=== PATIENT | female | born 1985 ===

== ENCOUNTER 2017-09-24 15:51 | Emergency (ER) | payer MEDICAID ==
[2017-09-24 16:19] VITALS: RESP 18; O2SAT 99
--- NOTE | 2017-09-24 16:38 | ED PDOC ---
HPI: Female Pain Time Seen by Provider: 09/24/17 16:35 Chief Complaint (Nursing): Female Genitourinary Chief Complaint (Provider): with pain and bleeding History Per: Patient, Family (patient's at bedside is translating in Belgian for patient) Additional Complaint(s): 32-year-old female presents with vaginal bleeding and abdominal pain. Patient states she is currently and her last period was August 14. She was seen yesterday by financial accounting analyst and test was positive. Patient is currently taking vitamins. Today bleeding became heavier prompting ED visit. Or vomiting, no fever or chills, no dysuria. PMD: Dr. Flores Past Medical History Reviewed: Historical Data, Nursing Documentation, Vital Signs Vital Signs: Last Vital Signs Temp 98.6 F 09/24/17 16:16 Pulse 83 09/24/17 16:16 Resp 18 09/24/17 16:16 BP 138/91 H 09/24/17 16:16 Pulse Ox 99 09/24/17 16:16 - Medical History PMH: No Chronic Diseases Other PMH: (1 previous miscarriage) - Surgical History Surgical History: (x 1) Other surgeries: craniotomy due to trauma, left humerus fracture repair - Family History Family History: States: No Known Family Hx - Living Arrangements Living Arrangements: With Family - Social History Current smoker - smoking cessation education provided: No Alcohol: None Drugs: Denies - Allergies Allergies/Adverse Reactions: Allergies Allergy/AdvReac Type Severity Reaction Status Date / Time No Known Allergies Allergy Verified 09/24/17 16:16 Review of Systems ROS Statement: Except As Marked, All Systems Reviewed And Found Negative Constitutional: Negative for: Fever Cardiovascular: Negative for: Chest Pain Respiratory: Negative for: Cough Gastrointestinal: Positive for: Abdominal Pain. Negative for: Nausea, Vomiting Genitourinary Female: Positive for: Vaginal Bleeding. Negative for: Dysuria Physical Exam - Reviewed Nursing Documentation Reviewed: Yes Vital Signs Reviewed: Yes - Physical Exam Appears: Positive for: Well, Non-toxic, No Acute Distress Skin: Positive for: Normal Color. Negative for: Rash Eye Exam: Positive for: Normal appearance Cardiovascular/Chest: Positive for: Regular Rate, Rhythm Respiratory: Positive for: Normal Breath Sounds. Negative for: Wheezing, Respiratory Distress Gastrointestinal/Abdominal: Positive for: Soft. Negative for: Tenderness, Distended, Guarding, Rebound Extremity: Positive for: Normal ROM. Negative for: Pedal Edema Neurologic/Psych: Positive for: Alert, Oriented - Laboratory Results Result Diagrams: 09/24/17 17:15 09/24/17 17:15 Urine POC: Positive Urine dip results: Positive for: Blood (moderate). Negative for: Leukocyte Esterase, Nitrate, Ketones, Glucose, Bilirubin, Protein - ECG O2 Sat by Pulse Oximetry: 99 Pulse Ox Interpretation: Normal - Other Rad OB TV US X-Ray: Read By Radiologist X-Ray Interpretation: see below Medical Decision Making Medical Decision Makin32 year old female with abd pain and bleeding Plan: Urine dip Urine CBC CMP Beta quant OB TV US IBF PO tylenol Type and screen US: FINDINGS: UTERUS: Measures 5 x 6.1 x 8.4 cm. Normal in size and appearance. No fibroid or other mass lesion seen. ENDOMETRIUM: Measures 10.6 mm in diameter. No ultrasound findings to suggest gestational sac, fluid, debris, mass or polyp or other pathologic process within the endometrium. CERVIX: No cervical abnormality identified. RIGHT OVARY: Measures 1.6 x 2.4 x 2.5 cm. No solid mass. Normal flow. Multiple subcentimeter follicles. LEFT OVARY: Measures 1.4 x 1.7 x 2.8 cm. No solid mass. Normal flow. FREE FLUID: No significant free fluid noted. OTHER FINDINGS: None. IMPRESSION: No visible intrauterine gestations/products of conception. Mild endometrial thickening. No significant adnexal findings. Beta is 419. Early vs complete . Case was d/w OB product marketing consultant, Dr. Weber. He states to have patient return in 2 days for repeat beta. Disposition - Clinical Impression Clinical Impression: Threatened - Patient ED Disposition Is Patient to be Admitted: No Counseled Patient/Family Regarding: Studies Performed, Diagnosis, Need For Followup - Disposition [facility] Disposition: Routine/Home Disposition Time: 18:20 Condition: STABLE Additional Instructions: Tylenol for pain as needed. Return to emergency room in 2 days for repeat blood work. Instructions: Threatened Miscarriage, Bleeding With Forms: [facility] (Belgian) Print Language: TOGOLESE Results - Lab Results Lab Results: 09/24/17 09/24/17 17:15 17:15 WBC 11.1 H RBC 4.34 Hgb 12.1 Hct 36.5 MCV 84.0 MCH 28.0 MCHC 33.3 RDW 13.2 Plt Count 222 MPV 8.7 Neut % (Auto) 68.4 Lymph % (Auto) 17.3 L Green % (Auto) 12.3 H Eos % (Auto) 1.6 Baso % (Auto) 0.4 Neut # (Auto) 7.6 H Lymph # (Auto) 1.9 Green # (Auto) 1.4 H Eos # (Auto) 0.2 Baso # (Auto) 0.0 Sodium 138 Potassium 3.7 Chloride 101 Carbon Dioxide 26 Anion Gap 15 BUN 14 Creatinine 0.8 Est GFR ( Amer) > 60 Est GFR (Non-Af Amer) > 60 Random Glucose 91 Calcium 8.8 Total Bilirubin 0.6 AST 16 ALT 21 Alkaline Phosphatase 53 Total Protein 6.9 Albumin 4.0 Globulin 2.9 Albumin/Globulin Ratio 1.4 Beta HCG, Quant 419.14
[2017-09-24] MEDS ORDERED: Sodium Chloride 0.9% 1,000 ML IV STA (16:39)
[2017-09-24 17:24] LABS: BASO % 0.4 % (0.0-2.0); EOS # 0.2 K/uL (0.0-0.7); EOS % 1.6 % (0.0-4.0); HEMOGLOBIN 12.1 g/dL (12.0-16.0); LYMPH # 1.9 K/uL (1.0-4.3); LYMPH % 17.3 % (20.0-40.0); MEAN CORPUSCULAR HGB CONC 33.3 g/dL (33.0-37.0); MEAN PLATELET VOLUME 8.7 fl (7.2-11.7); MONO # 1.4 K/uL (0.0-0.8); MONO % 12.3 % (0.0-10.0); NEUT # 7.6 K/uL (1.8-7.0); NEUT % 68.4 % (50.0-75.0); RBC 4.34 Mil/uL (3.80-5.20); RED CELL DISTRIBUTION WIDTH 13.2 % (11.5-14.5); WHITE BLOOD COUNT 11.1 K/uL (4.8-10.8)
[2017-09-24 17:37] LABS: ALB/GLOB RATIO 1.4 (1.0-2.1); ALT/SGPT 21 U/L (9-52); AST/SGOT 16 U/L (14-36); BLOOD UREA NITROGEN 14 mg/dl (7-17); CALCIUM 8.8 mg/dL (8.4-10.2); GFR AFRICAN-AMERICAN > 60; GFR NON-AFRICAN AMERICAN > 60
--- NOTE | 2017-09-24 18:11 | US ---
HISTORY: Early with pain and bleeding. LMP 08/14/2017. Beta HCG results: Unknown COMPARISON: None available. TECHNIQUE: Transvaginal only. Real -time technique with 2D, duplex and color Doppler FINDINGS: UTERUS: Measures 5 x 6.1 x 8.4 cm. Normal in size and appearance. No fibroid or other mass lesion seen. ENDOMETRIUM: Measures 10.6 mm in diameter. No ultrasound findings to suggest gestational sac, fluid, debris, mass or polyp or other pathologic process within the endometrium. CERVIX: No cervical abnormality identified. RIGHT OVARY: Measures 1.6 x 2.4 x 2.5 cm. No solid mass. Normal flow. Multiple subcentimeter follicles. LEFT OVARY: Measures 1.4 x 1.7 x 2.8 cm. No solid mass. Normal flow. FREE FLUID: No significant free fluid noted. OTHER FINDINGS: None. IMPRESSION: No visible intrauterine gestations/products of conception. Mild endometrial thickening. No significant adnexal findings.
[2017-09-24 18:54] VITALS: BP 130/78; PULSE 72; TEMP 98.1
== END 2017-09-24 18:54 | disposition home or self-care (01) ==
LOC: H.ER 15:51
DX: O20.0 Threatened abortion (principal)
CPT/HCPCS: 76817; 80053; 81025; 84702; 85025; 86850; 86900; 96360; 99283; J7030

== ENCOUNTER 2017-09-26 14:30 | Emergency (ER) | payer MEDICAID ==
[2017-09-26 14:37] VITALS: O2SAT 99; BMI 19.9
[2017-09-26 14:58] VITALS: TEMP 98.2
[2017-09-26 15:45] LABS: BASO % 0.7 % (0.0-2.0); EOS # 0.3 K/uL (0.0-0.7); EOS % 4.6 % (0.0-4.0); HEMOGLOBIN 12.3 g/dL (12.0-16.0); LYMPH % 33.4 % (20.0-40.0); MEAN CELL VOLUME 83.8 fl (81.0-99.0); MEAN CORPUSCULAR HEMOGLOBIN 28.1 pg (27.0-31.0); MEAN CORPUSCULAR HGB CONC 33.5 g/dL (33.0-37.0); MEAN PLATELET VOLUME 8.9 fl (7.2-11.7); MONO # 0.8 K/uL (0.0-0.8); MONO % 13.2 % (0.0-10.0); NEUT # 2.9 K/uL (1.8-7.0); NEUT % 48.1 % (50.0-75.0); NRBC % 0.1 % (0.0-0.0); RBC 4.39 Mil/uL (3.80-5.20); RED CELL DISTRIBUTION WIDTH 13.4 % (11.5-14.5)
--- NOTE | 2017-09-26 16:24 | ED PDOC ---
HPI: Female Pain Time Seen by Provider: 09/26/17 14:54 Chief Complaint (Nursing): Female Genitourinary Chief Complaint (Provider): Female Genitourinary History Per: Patient History/Exam Limitations: no limitations Onset/Duration Of Symptoms: Days Current Symptoms Are (Timing): Still Present Additional Complaint(s): 32 year old female presents to the ED for a repeat Beta-HCG. Patient was seen here recently and reports she is still noticing vaginal bleeding with clots. Additionally, patient complains of suprapubic abdominal pain described as cramping. Otherwise: (-) vomiting, (-) nausea, (-) fever, (-) urinary symptoms. PMD: Dr.Luis Michelle Flores Past Medical History Reviewed: Historical Data, Nursing Documentation, Vital Signs Vital Signs: Last Vital Signs Temp 98.2 F 09/26/17 14:55 Pulse 81 09/26/17 14:55 Resp 15 09/26/17 14:55 BP 121/70 09/26/17 14:55 Pulse Ox 99 09/26/17 14:55 - Medical History PMH: Migraine - Surgical History Surgical History: (x 1) - Family History Family History: States: Unknown Family Hx - Social History Current smoker - smoking cessation education provided: No - Allergies Allergies/Adverse Reactions: Allergies Allergy/AdvReac Type Severity Reaction Status Date / Time No Known Allergies Allergy Verified 09/24/17 16:16 Review of Systems ROS Statement: Except As Marked, All Systems Reviewed And Found Negative Constitutional: Positive for: Other (repeat beta-HCG) Genitourinary Female: Positive for: Vaginal Bleeding (with clots) Physical Exam - Reviewed Nursing Documentation Reviewed: Yes Vital Signs Reviewed: Yes - Physical Exam Comments: GENERAL APPEARANCE: Patient is awake, alert, oriented x 3, in no distress. SKIN: Warm, dry; (-) cyanosis. EYES: (-) conjunctival pallor, (-) scleral icterus. ENMT: Mucous membranes moist. NECK: (-) tenderness, (-) stiffness, (-) lymphadenopathy. CHEST AND RESPIRATORY: (-) rales, (-) rhonchi, (-) wheezes; breath sounds equal bilaterally. HEART AND CARDIOVASCULAR: (-) irregularity; (-) murmur, (-) gallop. ABDOMEN AND GI: (-) distention. Bowel sounds active; (-) abdominal tenderness , (-) guarding, (-) rebound, (-) palpable masses, (-) CVA tenderness. EXTREMITIES: (-) deformity, (-) edema, (+) distal pulses. NEURO AND PSYCH: Mental status as above; (-) focal findings. - Laboratory Results Result Diagrams: 09/26/17 15:36 - ECG O2 Sat by Pulse Oximetry: 99 (RA) Medical Decision Making Medical Decision Making: Time: 153 Plan: -- Beta-HCG, Quantitative -- CBC with differentials -- Tylenol 975 mg PO -- US Pelvis/Transvaginal -- Previous medical records for 07/25/2017 reviewed and revealed Beta-HCG levels were 416 and ultrasound showed no IUP. Labs reviewed : hgb 12, beta quant 369 US TV: FINDINGS: UTERUS: Measures 9.7 x 5.2 x 5.9cm. Uterus is mildly enlarged, anteverted without focal myometrial lesion appreciable. ENDOMETRIUM: Measures 7.0 mm in diameter. Overall endometrial echotexture is moderately inhomogeneous but no gestational sacs identified within the endometrial cavity at this time. CERVIX: No cervical abnormality identified. RIGHT OVARY: Measures 2.8 x 1.3 x 2.6 cm. No solid mass. Normal flow. LEFT OVARY: Measures 3.7 x 1.4 x 2.2 cm. No solid mass. Normal flow. FREE FLUID: No significant free fluid noted. OTHER FINDINGS: None. IMPRESSION: No significant interval change. Inhomogeneity of the endometrium may reflect hemorrhage within the endometrial cavity though this is a nonspecific pattern nevertheless. No intrauterine gestation or definitive ectopic gestation appreciable. Ectopic remains not excluded. Consider early nonvisualized IUP or failure of gestation. Clinical and sonographic follow-up remain recommended. 1845 Case d/w OB button tacker, Mel Weber, states that the patient likely has a miscarriage, is not highly suspicious for ectopic at all. Recommends outpatient follow up with repeat beta quant after 1 week. Otherwise, feels that the patient is stable to go home. On re-evaluation, patient with no increase in abdominal pain or vaginal bleeding. On exam, patient remains AAOx3, in no acute distress. Abdomen soft, non-tender. Diagnostic results d/w the patient in great detail. Diagnosis of likely miscarriage d/w the patient. Based on history, exam and diagnostic results, plan will be for outpatient follow up. Patient instructed to follow-up with OB in 2 days without fail. Advised to take tylenol or motrin for paihn. Return to the emergency room at any time for any new or worsening symptoms. Patient states she fully agrees with and understands discharge instructions. States that she agrees with the plan and disposition. Verbalized and repeated discharge instructions and plan. I have given the patient opportunity to ask any additional questions. Scribe Attestation: Documented by Asya Soto, acting as a scribe for Johanna Palafox PA-C. Provider Scribe Attestation: All medical record entries made by the Scribe were at my direction and personally dictated by me. I have reviewed the chart and agree that the record accurately reflects my personal performance of the history, physical exam, medical decision making, and the department course for this patient. I have also personally directed, reviewed, and agree with the discharge instructions and disposition. Disposition - Clinical Impression Clinical Impression: Miscarriage - Patient ED Disposition Is Patient to be Admitted: No Counseled Patient/Family Regarding: Studies Performed, Diagnosis, Need For Followup - Disposition Referrals: [facility] [Outside] Chris Weber MD [Staff Provider] - Disposition: Routine/Home Disposition Time: 19:00 Condition: STABLE Additional Instructions: Thank you for letting us take care of you today. You were treated for miscarriage. The emergency medical care you received today was directed at your acute symptoms. Take over the counter tylenol or motrin for pain. It may take several days for your symptoms to resolve. Return to the Emergency Department if your symptoms worsen, do not improve, or if you have any other problems. Please call one of the physicians/clinics you have been referred to that are listed on the Patient Visit Information form that is included in your discharge packet. Bring any paperwork you were given at discharge with you along with any medications you are taking to your follow up visit. Our treatment cannot replace ongoing medical care by a primary care provider (PCP) outside of the emergency department. Thank you for allowing the [facility] team to be part of your care today. Instructions: Miscarriage Forms: [facility] (Bulgarian) Print Language: CROATIAN - PA / BACKUP SAWYER / Resident Statement MD/DO has reviewed & agrees with the documentation as recorded.
--- NOTE | 2017-09-26 18:31 | US ---
HISTORY: vag bleeding. Serum beta HCG 369.9. COMPARISON: Transvaginal ultrasound 09/24/2017. TECHNIQUE: Transabdominal and transvaginal pelvic ultrasound was performed with longitudinal and transverse images submitted for interpretation. FINDINGS: UTERUS: Measures 9.7 x 5.2 x 5.9cm. Uterus is mildly enlarged, anteverted without focal myometrial lesion appreciable. ENDOMETRIUM: Measures 7.0 mm in diameter. Overall endometrial echotexture is moderately inhomogeneous but no gestational sacs identified within the endometrial cavity at this time. CERVIX: No cervical abnormality identified. RIGHT OVARY: Measures 2.8 x 1.3 x 2.6 cm. No solid mass. Normal flow. LEFT OVARY: Measures 3.7 x 1.4 x 2.2 cm. No solid mass. Normal flow. FREE FLUID: No significant free fluid noted. OTHER FINDINGS: None. IMPRESSION: No significant interval change. Inhomogeneity of the endometrium may reflect hemorrhage within the endometrial cavity though this is a nonspecific pattern nevertheless. No intrauterine gestation or definitive ectopic gestation appreciable. Ectopic remains not excluded. Consider early nonvisualized IUP or failure of gestation. Clinical and sonographic follow-up remain recommended.
[2017-09-26 19:51] VITALS: BP 125/71; PULSE 75; RESP 16
== END 2017-09-26 19:50 | disposition home or self-care (01) ==
LOC: H.ER 14:30
DX: O03.9 Complete or unspecified spontaneous abortion without complication (principal)